=== PATIENT | male | born 1960 | race Caucasian/White ===

== ENCOUNTER 2016-10-28 09:00 | Outpatient (RCR) | payer MEDICARE, MEDICAID ==
[2014-03-07 10:14] VITALS: BP 147/88
[~2016-10-28 09:00] MED LIST: ADVICOR PO; ALLOPURINOL100 MG PO; AMIODARONE200 MG PO; ASPIRIN ADULT L81 M3 PO; GABAPENTIN100 M1 PO; HUMALOG PEN100 U/ML SQ; LANTUS100 U/ML SQ; NEXIUM40 MG PO; NORVASC 10MG10 MG PO; PROVENTIL0.09 MG/Ac IH; SKELAXIN 800MG800 MG PO; SODIUM BIC650 MG/TAB PO; THYROXINE PO; TOPROL XL50 MG PO; ULTRAM 50MG TAB50 MG PO; VITAMIN D50000 I1 PO; VOLTAREN1% TP
== END 2017-01-22 | disposition home or self-care (01) ==
LOC: PT
DX: M54.5 Low back pain (principal)

== ENCOUNTER → 2016-12-13 | Outpatient (CLI) | payer MEDICARE, MEDICAID | LOC: LAB 09:30 | DX: N18.2 Chronic kidney disease, stage 2 (mild) (principal) ==

== ENCOUNTER → 2016-12-20 | Outpatient (CLI) | payer MEDICARE, MEDICAID | LOC: LAB 08:19 | DX: R80.9 Proteinuria, unspecified (principal); N18.2 Chronic kidney disease, stage 2 (mild) ==

== ENCOUNTER → 2017-01-06 | Outpatient (CLI) | payer MEDICARE, MEDICAID | LOC: LAB 08:08 | DX: N18.2 Chronic kidney disease, stage 2 (mild) (principal); R80.9 Proteinuria, unspecified ==

== ENCOUNTER → 2017-01-23 | Outpatient (CLI) | payer MEDICARE, MEDICAID | LOC: LAB 08:21 | DX: N18.2 Chronic kidney disease, stage 2 (mild) (principal); R80.9 Proteinuria, unspecified ==

== ENCOUNTER → 2017-01-31 | Outpatient (CLI) | payer MEDICARE, MEDICAID ==
[2014-03-07 10:14] VITALS: BP 147/88
== END ==
LOC: VAS 16:07
DX: I27.2 Other secondary pulmonary hypertension (principal); I38 Endocarditis, valve unspecified; I50.9 Heart failure, unspecified

== ENCOUNTER → 2017-02-27 | Outpatient (CLI) | payer MEDICARE, MEDICAID ==
[2014-03-07 10:14] VITALS: BP 147/88
== END ==
LOC: LAB 08:11
DX: N17.9 Acute kidney failure, unspecified (principal); R80.9 Proteinuria, unspecified

== ENCOUNTER → 2017-03-18 | Outpatient (CLI) | payer MEDICARE, MEDICAID ==
[2014-03-07 10:14] VITALS: BP 147/88
== END ==
LOC: RAD 13:20
DX: R06.02 Shortness of breath (principal)

== ENCOUNTER → 2017-03-27 | Outpatient (CLI) | payer MEDICARE, MEDICAID ==
[2014-03-07 10:14] VITALS: BP 147/88
== END ==
LOC: LAB 08:46
DX: I10 Essential (primary) hypertension (principal)

== ENCOUNTER → 2017-05-21 | Outpatient (CLI) | payer MEDICARE, MEDICAID ==
[2014-03-07 10:14] VITALS: BP 147/88
== END ==
LOC: LAB 08:27
DX: R80.9 Proteinuria, unspecified (principal); I10 Essential (primary) hypertension

== ENCOUNTER → 2017-07-24 | Outpatient (CLI) | payer MEDICARE, MEDICAID ==
[2014-03-07 10:14] VITALS: BP 147/88
== END ==
LOC: LAB 07:57
DX: R06.00 Dyspnea, unspecified (principal); R80.8 Other proteinuria

== ENCOUNTER → 2017-09-25 | Outpatient (CLI) | payer MEDICARE, MEDICAID ==
[2014-03-07 10:14] VITALS: BP 147/88
== END ==
LOC: LAB 09-24 16:23
DX: Z20.1 Contact with and (suspected) exposure to tuberculosis (principal)

== ENCOUNTER 2017-10-06 13:00 | Emergency (ER) | payer MEDICARE, MEDICAID ==
[~2017-10-06] VITALS: Ht 188 cm; Wt 154.1 kg
[2017-10-06 13:33] LABS: HEMATOCRIT 30.4 % (42.0-52.0); HEMOGLOBIN 9.5 g/dL (13.5-18.0); MEAN CELL VOLUME 91 fl (78-100); MEAN CORPUSCULAR HEMOGLOBIN 28 pg (27-31); MEAN CORPUSCULAR HGB CONC 31 g/dL (33-37); MEAN PLATELET VOLUME 11.7 fl (7.4-10.4); PLATELET COUNT 157 K/mm3 (130-400); RED BLOOD COUNT 3.36 M/mm3 (4.20-5.60); RED CELL DISTRIBUTION WIDTH 15.3 % (11.5-14.5); WHITE BLOOD COUNT 9.9 K/mm3 (4.8-10.8)
[2017-10-06 13:48] LABS: ALBUMIN 4.1 g/dL (3.5-5.0); ALT/SGPT 53 U/L (21-72); AST-SGOT 104 U/L (17-59); BUN/CREATININE RATIO 25.7 (6.0-26.0); CALCIUM 9.1 mg/dL (8.4-10.2); CARBON DIOXIDE 33 mmol/L (22-30); GLUCOSE 295 mg/dL (75-110); POTASSIUM 3.6 mmol/L (3.6-5.0); SODIUM 129 mmol/L (137-145); TOTAL BILIRUBIN 1.9 mg/dL (0.2-1.3); TOTAL PROTEIN 7.4 g/dL (6.3-8.2)
[2017-10-06 13:55] LABS: LYMPHOCYTE 5 % (20-51); MONOCYTE 6 % (3-10); NEUTROPHILS 89 % (42-75)
[2017-10-06 13:56] LABS: HYPOCHROMIA 2+
[2017-10-06 13:57] LABS: CKMB ISOENZYME 11.2 ng/mL (0.6-3.5)
[2017-10-06 14:00] LABS: TROPONIN-I 0.05 ng/mL (0.00-0.06)
[2017-10-06] MEDS ORDERED: LASIX 80MG TABL80 MG (14:10)
[2017-10-06] MEDS ORDERED: ZYRTEC ALLERGY10 MG PO (14:10)
[2017-10-06] MEDS ORDERED: CYCLOBENZAPRINE10 M1 PO (14:12)
[2017-10-06] MEDS ORDERED: CITALOPRAM40 MG PO (14:13)
[2017-10-06] MEDS ORDERED: SIMVASTATIN40 M1 PO (14:13)
[2017-10-06] MEDS ORDERED: ZAROXOLYN PO (14:15)
[2017-10-06] MEDS ORDERED: POTASSIUM CHLO20 ME4 PO (14:15)
[2017-10-06] MEDS ORDERED: SUCRALFATE1 G1 PO (14:15)
[2017-10-06] MEDS ORDERED: LEVEMIR100 U/M1 SQ (14:17)
[2017-10-06] MEDS ORDERED: SYMBICORT1 AE3 IH (14:17)
[2017-10-06] MEDS ORDERED: PROCARDIA XL30 M1 PO (14:17)
[2017-10-06 15:24] VITALS: BP 159/84
== END 2017-10-06 15:12 | disposition short-term general hospital (02) ==
LOC: ED 13:00
PROVIDERS: Nurse Practitioner Primary Care
DX: I11.0 Hypertensive heart disease with heart failure (principal); I50.9 Heart failure, unspecified; N19 Unspecified kidney failure; E07.9 Disorder of thyroid, unspecified; Z95.1 Presence of aortocoronary bypass graft; Z79.82 Long term (current) use of aspirin; R09.02 Hypoxemia; Z79.4 Long term (current) use of insulin; M10.9 Gout, unspecified

== ENCOUNTER → 2017-11-25 | Outpatient (CLI) | payer MEDICARE, MEDICAID ==
[~2017-11-25] MED LIST changes: +CITALOPRAM40 MG PO; +CYCLOBENZAPRINE10 M1 PO; +LASIX 80MG TABL80 MG; +LEVEMIR100 U/M1 SQ; +POTASSIUM CHLO20 ME4 PO; +PROCARDIA XL30 M1 PO; +SIMVASTATIN40 M1 PO; +SUCRALFATE1 G1 PO; +SYMBICORT1 AE3 IH; +ZAROXOLYN PO; +ZYRTEC ALLERGY10 MG PO
[2017-11-25 13:43] LABS: EOS # 0.2 (0.04-0.40); HEMATOCRIT 33.7 % (42.0-52.0); LYMPH# 1.1 (1.50-4.00); MEAN CELL VOLUME 92 fl (78-100); MEAN CORPUSCULAR HEMOGLOBIN 27 pg (27-31); MEAN CORPUSCULAR HGB CONC 30 g/dL (33-37); MONO # 0.6 (0.20-0.80); NEU # 5.7 (1.40-6.50); PLATELET COUNT 185 K/mm3 (130-400); RED BLOOD COUNT 3.65 M/mm3 (4.20-5.60); RED CELL DISTRIBUTION WIDTH 15.4 % (11.5-14.5); WHITE BLOOD COUNT 7.7 K/mm3 (4.8-10.8)
[2017-11-25 13:46] LABS: CALCIUM 9.1 mg/dL (8.4-10.2); MEAN PLATELET VOLUME 12.6 fl (7.4-10.4); POTASSIUM 4.3 mmol/L (3.6-5.0)
== END ==
LOC: LAB 07:27
PROVIDERS: Internal Medicine
DX: R80.8 Other proteinuria (principal)